=== PATIENT | male | born 2000 | race Caucasian/White ===

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

== ENCOUNTER 2019-02-06 22:53 | Emergency (ER) | payer OTHER ==
[~2019-02-06] VITALS: Ht 188 cm; Wt 68.0 kg
[2019-02-06] MEDS ORDERED: TRAZ50 PO (23:10)
[2019-02-06] MEDS ORDERED: PROPANOLOL (23:11)
== END 2019-02-07 01:25 | disposition home or self-care (01) ==
LOC: ER 22:53
DX: S63.502A Unspecified sprain of left wrist, initial encounter (principal); F43.10 Post-traumatic stress disorder, unspecified; F90.9 Attention-deficit hyperactivity disorder, unspecified type; F41.9 Anxiety disorder, unspecified; F32.9 Major depressive disorder, single episode, unspecified; F17.200 Nicotine dependence, unspecified, uncomplicated; Z87.01 Personal history of pneumonia (recurrent); Z88.0 Allergy status to penicillin; X58.XXXA Exposure to other specified factors, initial encounter
CPT/HCPCS: 29125; 73110; 96372-59; 99283-25; J1885